=== PATIENT | male | born 1935 | race Caucasian/White ===

== ENCOUNTER 2017-12-25 10:05 | Emergency (ER) | payer OTHER ==
[~2017-12-25] VITALS: Ht 185.4 cm; Wt 97.5 kg
[~2017-12-25 10:05] MED LIST: NORCO 5-325 TA1 EACH PO; ZOCOR 10 MG TAB10 MG PO
[2017-12-25] MEDS ORDERED: NAMENDA 10 MG T10 MG PO (10:31)
[2017-12-25 11:45] VITALS: BP 157/85
== END 2017-12-25 19:03 | disposition home or self-care (01) ==
LOC: ER 10:05
DX: R51 Headache (principal); I10 Essential (primary) hypertension; E78.00 Pure hypercholesterolemia, unspecified; Z88.0 Allergy status to penicillin

== ENCOUNTER 2019-08-20 16:00 | Inpatient (IN) | payer OTHER ==
[~2019-08-20] VITALS: Ht 182.9 cm; Wt 88.5 kg
[~2019-08-20 16:00] MED LIST changes: +NAMENDA 10 MG T10 MG PO
[2019-08-20 16:03] VITALS: BP 102/51
[2019-08-20 16:52] LABS: ABSOLUTE NEUTROPHILS 5.6 thou/uL (1.4-8.2); BASOPHILS 0.7 % (0.0-2.0); EOSINOPHILS 1.8 % (0.0-3.0); HEMATOCRIT 43.7 % (42.0-52.0); HEMOGLOBIN 14.8 gm/dL (14.0-18.0); LYMPHOCYTES 16.3 % (24.0-44.0); MCH 31.3 pg (26.0-34.0); MCHC 33.9 g/dL (28.0-37.0); MCV 92.4 fL (80.0-100.0); MONOCYTES 11.6 % (1.0-8.0); PLATELET COUNT 150 thou/uL (150-400); POLYS 69.6 % (36.0-66.0); RBC 4.73 mil/uL (4.50-6.00); RDW 13.8 % (10.5-14.5); WBC 8.1 thou/uL (4.0-11.0)
[2019-08-20 17:08] LABS: CALCIUM 8.6 mg/dL (8.5-10.1); CREATININE 1.4 mg/dL (0.7-1.3); POTASSIUM 4.1 mmol/L (3.5-5.1)
[2019-08-20 17:18] LABS: ALBUMIN 3.7 g/dL (3.4-5.0); TOTAL PROTEIN 6.4 g/dL (6.4-8.2)
[2019-08-20 17:20] LABS: TROPONIN-I 11.37 ng/mL (<0.06)
[2019-08-20 17:58] LABS: PROTIME 10.7 Seconds (9.3-11.4)
[2019-08-20 18:09] LABS: URINE BILIRUBIN NEGATIVE (Negative); URINE BLOOD NEGATIVE (Negative); URINE CLARITY CLEAR; URINE COLOR YELLOW; URINE GLUCOSE-RANDOM* NEGATIVE (Negative); URINE KETONES NEGATIVE (Negative); URINE LEUKOCYTES-REFLEX NEGATIVE (Negative); URINE NITRITE-REFLEX NEGATIVE (Negative); URINE PROTEIN (DIPSTICK) NEGATIVE (Negative)
[2019-08-20 18:20] LABS: ALBUMIN 3.8 g/dL (3.4-5.0); TOTAL PROTEIN 6.4 g/dL (6.4-8.2)
[2019-08-20 18:46] LABS: TSH 3.194 uIU/mL (0.358-3.740)
[2019-08-20] MEDS ORDERED: COZAAR 25 MG TA25 M2 PO (18:51)
[2019-08-20] MEDS ORDERED: VITAMIN B-121000 MC2 SUBLING (18:52)
[2019-08-20] MEDS ORDERED: LIPITOR10 MG PO (18:52)
[2019-08-20 19:20] VITALS: BP 106/64
[2019-08-20 19:41] VITALS: BP 100/51
[2019-08-20] MEDS ORDERED: EXELON1 EACH TRANSDERM (21:35)
[2019-08-21 00:01] VITALS: BP 120/65
[2019-08-21 03:50] VITALS: BP 122/52
[2019-08-21 07:00] VITALS: BP 112/55
--- NOTE | 2019-08-21 09:54 | EKG ---
[facility] [place] [address] ELECTROCARDIOGRAM REPORT Name: RUPAL ROCHA Room #: 217-P ADM IN M.R.#: [id number] Admission: 08/20/19 Attend Phys: Lior Ambrose MD Discharge: Date of : 37 Report #: [id number] THIS REPORT FOR: cc: Henrry Pat MD, Rene P. MD Park, Jin S. MD ~ THIS REPORT FOR: //name// [facility] ED Test Date: 2019-08-20 Test Time: 16:36:31 Pat Name: RUPAL ROCHA Department: Room: [facility] Gender: M Display Screen Fabricator: JUDD : 1935 Requested By: Jacky Willams Order Number: [id number] MD: Wilian cMkeon Measurements Intervals [place] Rate: 47 P: SC: QRS: 269 QRSD: 114 T: 65 QT: 456 QTc: 404 Interpretive Statements Sinus bradycardia Left anterior fascicular block Low voltage, extremity leads Abnormal R-wave progression, late transition No previous ECG available for comparison Electronically Signed On 08-21-2019 9:53:38 CDT by Wilian Mckeon [email or web address] <ELECTRONICALLY SIGNED> By: Wilian Mckeon MD 08/21/19 0953 1636 1636 Wilian Mckeon MD /[facility]
[2019-08-21 11:30] VITALS: BP 97/71
[2019-08-21 16:30] VITALS: BP 95/49
[2019-08-21 18:07] LABS: HEMATOCRIT 41.5 % (42.0-52.0); HEMOGLOBIN 14.1 gm/dL (14.0-18.0); MCH 31.4 pg (26.0-34.0); MCHC 33.9 g/dL (28.0-37.0); MCV 92.5 fL (80.0-100.0); RBC 4.49 mil/uL (4.50-6.00); RDW 13.7 % (10.5-14.5)
[2019-08-21 18:26] LABS: CALCIUM 8.2 mg/dL (8.5-10.1); CREATININE 1.1 mg/dL (0.7-1.3); MAGNESIUM 1.9 mg/dL (1.8-2.4); POTASSIUM 3.9 mmol/L (3.5-5.1)
[2019-08-21 18:30] VITALS: BP 91/40
[2019-08-22 04:45] VITALS: BP 99/55
[2019-08-22 07:50] VITALS: BP 95/50
--- NOTE | 2019-08-22 09:02 | HC ---
[facility] [place] [address] CONSULTATION Name: RUPAL ROCHA Room #: 217-P [facility] IN .R.#: [id number] Admission: 08/20/19 Attend Phys: Lior Ambrose MD Discharge: Date of : 36 Report #: [id number] THIS REPORT FOR: cc: Henrry Pat MD, Rene P. MD Park, Jin S. MD ~ CC: Lior Pat DATE OF SERVICE: 08/21/2019 CARDIOLOGY CONSULTATION INDICATION: Troponin elevation. HISTORY OF PRESENT ILLNESS: This is an 83-year-old gentleman with a history of Alzheimer's, dementia, hypertension and hypercholesterolemia. He was brought in by his due to lethargy and weakness. The patient is unable to give any history. The reports that the patient complained of chest pain several nights ago for about an hour. Since then, he has not had any further complaints of chest pain or shortness of breath. The patient appeared to be weaker and the brought the patient to the ER for an evaluation. He was found to have a troponin elevation, but the ECG did not show any acute ST segment changes. He was also found to have a low blood pressure and bradycardia. PAST MEDICAL HISTORY: Hypertension, Alzheimer's, hypercholesterolemia. ALLERGIES: PENICILLIN. MEDICATIONS: At home include Namenda 10 mg twice a day, losartan 50 mg daily, Lipitor 10 mg daily. SOCIAL HISTORY: Negative for tobacco use, lives with his in [facility]. FAMILY HISTORY: Negative for premature CAD. REVIEW OF SYSTEMS: A full 10-point review of systems performed. Only the pertinent positives and negatives are described in the HPI. PHYSICAL EXAMINATION: VITAL SIGNS: Blood pressure is 110/50, heart rate is 54 beats per minute. GENERAL APPEARANCE: This is an elderly appearing male, in no acute distress. HEENT: Normocephalic, atraumatic. Oral mucosa moist. NECK: Supple. LUNGS: Clear to auscultation. CARDIAC: Regular rate and rhythm. S1, S2 positive. [facility] [address] [place] [address] CONSULTATION Name: AJRUPAL Suzie Room #: 217-P [facility] IN M.R.#: [id number] Admission: 08/20/19 Attend Phys: Lior Ambrose MD Discharge: Date of : 36 Report #: [id number] ABDOMEN: Soft, nontender. EXTREMITIES: No cyanosis. Trace edema. NEUROLOGIC: Lethargic, but able to answer questions. LABORATORY VALUES: Peak troponin is 11.37. White count is 8.1, hemoglobin 14.8, creatinine is 1.4. DIAGNOSTIC DATA: ECG reveals sinus bradycardia. ASSESSMENT AND PLAN: 1. Non-ST elevation myocardial infarction. By his history, it seems that the initial incident was several nights ago. He has not had any further episodes of chest pain. The initial troponin of 11 is the peak and the subsequent one is already a downward trend. I have discussed the findings and history with his . Given his age, comorbid conditions, we will pursue a strategy of conservative therapy. Continue on aspirin and statin therapy. No beta adriane in view of his bradycardia. We will obtain an echo. 2. Hypertension, low blood pressure. Hold medications and continue with hydration. 3. Hypercholesterolemia, continue with statin therapy. 4. Weakness/lethargy, rule out an infectious process. <ELECTRONICALLY SIGNED> By: Wilian Mckeon MD 08/22/19 0902 1025 1041 Wilian Mckeon MD /nt
[2019-08-22 11:45] VITALS: BP 108/72
[2019-08-22 13:36] LABS: HEMATOCRIT 40.7 % (42.0-52.0); HEMOGLOBIN 13.7 gm/dL (14.0-18.0); MCH 31.3 pg (26.0-34.0); MCHC 33.7 g/dL (28.0-37.0); MCV 92.8 fL (80.0-100.0); RBC 4.38 mil/uL (4.50-6.00); RDW 14.1 % (10.5-14.5); WBC 6.8 thou/uL (4.0-11.0)
[2019-08-22 13:54] LABS: ALBUMIN 2.8 g/dL (3.4-5.0); CALCIUM 8.1 mg/dL (8.5-10.1); MAGNESIUM 1.9 mg/dL (1.8-2.4); POTASSIUM 3.5 mmol/L (3.5-5.1); TOTAL BILIRUBIN 0.7 mg/dL (<0.1-1.0); TOTAL PROTEIN 5.8 g/dL (6.4-8.2)
[2019-08-22 16:00] VITALS: BP 97/51
[2019-08-22 20:01] VITALS: BP 120/61
[2019-08-23 05:08] LABS: CALCIUM 7.8 mg/dL (8.5-10.1); CREATININE 0.9 mg/dL (0.7-1.3); MAGNESIUM 1.7 mg/dL (1.8-2.4); POTASSIUM 3.6 mmol/L (3.5-5.1)
[2019-08-23 05:12] LABS: HEMATOCRIT 36.8 % (42.0-52.0); HEMOGLOBIN 12.5 gm/dL (14.0-18.0); MCH 31.4 pg (26.0-34.0); MCHC 33.9 g/dL (28.0-37.0); MCV 92.6 fL (80.0-100.0); RBC 3.98 mil/uL (4.50-6.00); RDW 13.4 % (10.5-14.5)
[2019-08-23 05:13] VITALS: BP 142/77
--- NOTE | 2019-08-23 09:36 | 2DMMODE ---
[facility] [place] [address] 2 D/M-MODE ECHOCARDIOGRAM Name: ROCHARUPAL Larsen Room #: 217-P ADM IN M.R.#: [id number] Admission: 08/20/19 Attend Phys: Lior Ambrose MD Discharge: Date of : 36 Report #: [id number] THIS REPORT FOR: cc: Henrry Pat MD, Rene P. MD Park, Jin S. MD ~ APPROVED REPORT Study performed: 08/21/2019 10:00:07 EXAM: Comprehensive 2D, Doppler, and color-flow Echocardiogram Patient Location: Bedside Room #: 217 Status: routine BSA: 2.34 HR: 53 bpm Other Information Study Quality: Technically Difficult Indications NSTEMI 2D Dimensions IVSd: 12.64 (7-11mm) LVOT Diam: 25.20 (18-24mm) LVDd: 46.88 mm PWd: 13.36 (7-11mm) Ascending Ao: 36.13 (22-36mm) LVDs: 22.32 (25-40mm) Left Atrium: 39.61 (27-40mm) Aortic Root: 36.11 mm Volumes Left Atrial Volume (Systole) Single Plane 4CH: 43.09 mL Single Plane 2CH: 39.14 mL LA ESV Index: 19.00 mL/m2 Aortic Valve AoV Peak Aiden.: 1.37 m/s AO Peak Gr.: 7.49 mmHg AO Mean Gr.: 3.39 mmHg AO V2 Mean: 0.84 m/s AO V2 VTI: 29.36 cm [facility] [address] [place] [address] 2 D/M-MODE ECHOCARDIOGRAM Name: RUPAL ROCHA Room #: 217-P [facility] IN .R.#: [id number] Admission: 08/20/19 Attend Phys: Lior Ambrose, Discharge: Date of : 36 Report #: [id number] Mitral Valve E/A Ratio: 1.3 MV Decel. Time: 230.96 ms MV E Max Aiden.: 0.81 m/s MV A Aiden.: 0.62 m/s MV PHT: 66.98 ms IVRT: 115.34 ms Pulmonary Vein P Vein S: 0.37 m/s P Vein A: 0.28 m/s P Vein D: 0.22 m/s P Vein A Dur.: 170.7 msec P Vein S/D Ratio: 1.68 Left Ventricle The left ventricle is normal size. Mild concentric left ventricular hypertrophy. The left ventricular systolic function is normal. The left ventricular ejection fraction is within the normal range. LVEF is 60-65%. This study is not technically sufficient to allow evaluation of the LV diastolic function. Right Ventricle Right ventricle appears grossly normal in size. Atria The left atrium size is normal. The right atrium size is normal. Aortic Valve The aortic valve is normal in structure. No aortic regurgitation is present. There is no aortic valvular stenosis. Mitral Valve Mild mitral annular calcification. Mild mitral regurgitation. No evidence of mitral valve stenosis. Tricuspid Valve The tricuspid valve is normal in structure. There is no tricuspid valve regurgitation noted. Unable to assess PA pressure. Pulmonic Valve Pulmonic valve is not visualized. Great Vessels The aortic root is normal in size. IVC is not visualized. [facility] [address] [place] [address] 2 D/M-MODE ECHOCARDIOGRAM Name: RUPAL ROCHA Room #: 217-P [facility] IN M.R.#: [id number] Admission: 08/20/19 Attend Phys: Lior Ambrose, Discharge: Date of : 36 Report #: [id number] Pericardium There is no pericardial effusion. <Conclusion> The left ventricle is normal size. Mild concentric left ventricular hypertrophy. The left ventricular systolic function is normal. Right ventricle appears grossly normal in size. The left atrium size is normal. The aortic valve is normal in structure. Mild mitral annular calcification. Mild mitral regurgitation. There is no tricuspid valve regurgitation noted. <ELECTRONICALLY SIGNED> By: Wilian Mckeon MD 08/23/19 0934 0934 0934 Wilian Mckeon MD /INF
[2019-08-23 13:14] VITALS: BP 135/72
[2019-08-23 13:53] VITALS: BP 135/72
[2019-08-23] MEDS ORDERED: LIPITOR10 MG PO (14:49)
[2019-08-23] MEDS ORDERED: TRI-BUFFERED A325 M1 PO (14:50)
[2019-08-23 15:08] VITALS: BP 135/72
[2019-08-23 15:56] VITALS: BP 135/72
[2019-08-24 09:20] LABS: CHOLESTEROL 107 mg/dL (<200); HDL CHOLESTEROL 35 mg/dL (>40); LDL CHOLESTEROL 63 mg/dL (<100); TC:HDL 3.1 Ratio (Not establshd); TRIGLYCERIDE 47 mg/dL (<150); VLDL 9 mg/dL (<40)
== END 2019-08-23 16:00 | disposition home health service (06) | DRG 281 ==
LOC: ER 16:00 → 2N 19:32
PROVIDERS: Emergency Medicine; ADMIT Internal Medicine
DX: I21.4 Non-ST elevation (NSTEMI) myocardial infarction (principal); E46 Unspecified protein-calorie malnutrition; N17.9 Acute kidney failure, unspecified; I12.9 Hypertensive chronic kidney disease with stage 1 through stage 4 chronic kidney disease, or unspecified chronic kidney disease; E78.00 Pure hypercholesterolemia, unspecified; I95.9 Hypotension, unspecified; N18.3 Chronic kidney disease, stage 3 (moderate); G30.9 Alzheimer's disease, unspecified; F02.80 Dementia in other diseases classified elsewhere, unspecified severity, without behavioral disturbance, psychotic disturbance, mood disturbance, and anxiety; Z66 Do not resuscitate; E53.8 Deficiency of other specified B group vitamins; Z88.0 Allergy status to penicillin; Z79.82 Long term (current) use of aspirin; Z79.899 Other long term (current) drug therapy; Z68.26 Body mass index [BMI] 26.0-26.9, adult
CPT/HCPCS: 10081

== ENCOUNTER 2020-02-14 07:38 | Emergency (ER) | payer OTHER ==
[~2020-02-14] VITALS: Ht 185.4 cm; Wt 102.1 kg
[~2020-02-14 07:38] MED LIST changes: +COZAAR 25 MG TA25 M2 PO; +EXELON1 EACH TRANSDERM; +LIPITOR10 MG PO; +TRI-BUFFERED A325 M1 PO; +VITAMIN B-121000 MC2 SUBLING
[2020-02-14 08:53] VITALS: BP 132/75
== END 2020-02-14 09:09 | disposition home or self-care (01) ==
LOC: EDBD 07:38 → ER 07:38
DX: R51 Headache (principal); H92.01 Otalgia, right ear; F03.90 Unspecified dementia, unspecified severity, without behavioral disturbance, psychotic disturbance, mood disturbance, and anxiety; E78.00 Pure hypercholesterolemia, unspecified; I10 Essential (primary) hypertension; Z79.899 Other long term (current) drug therapy; Z79.82 Long term (current) use of aspirin; Z88.0 Allergy status to penicillin

== ENCOUNTER 2021-03-31 10:43 | Emergency (ER) | payer OTHER ==
[~2021-03-31] VITALS: Ht 185.4 cm; Wt 99.8 kg
--- NOTE | ~2021-03-31 | EMS ---
[facility] [address] [place] [address] EMS Patient Care Report Name: RUPAL ROCHA Room #: DEP KG Stanton#: [id number] Admission: 03/31/21 Attend Phys: Discharge: 03/31/21 Date of : 36 Report #: [id number] THIS REPORT FOR: //name// Report Transmitted: 04/02/2021 14:37 EMS Care Summary [place], [place]/[facility] Incident [id number] @ 03/31/2021 10:14 Incident Location [address] Patient RUPAL ROCHA Male, 85 Years 1935 Patient Address [address] [place] [address] Patient History Dementia,Hypertension (HTN), Patient Allergies Penicillin allergy, Patient Medications Atorvastatin, Losartan, Memantine, Sertraline, Meloxicam, Chief Complaint RLQ ABD PAIN AND CONSTIPATION Disposition Transported No Lights/[place] Dispatch Reason Abdominal Pain/Problems Transported To [facility] Narrative UPON ARRIVAL WE FOUND OUR 85 YEAR OLD MALE PATIENT, WITH A HX OF DEMENTIA, LAYING IN BED IN HIS APT AT [facility] WITH HIS BY HIS SIDE COMPLAINING OF INTERMITTENT, SHARP RLQ ABD PAIN X 2 DAYS. THE PATIENT'S [facility] [address] [place] [address] EMS Patient Care Report Name: RUPAL ROCHA Room #: DEP ER Maximino#: [id number] Admission: 03/31/21 Attend Phys: Discharge: 03/31/21 Date of : 36 Report #: [id number] STATES THE PATIENT WAS COMPLAINING OF BACK PAIN YESTERDAY, SO SHE TOOK HIM TO HIS PCP AND HE WAS DIAGNOSED WITH ARTHRITIS OF THE SPINE AND GIVEN AN RX FOR MELOXICAM. TODAY, THE PAIN HAS MOVED TO HIS RLQ AND THE PATIENT'S THINKS HE MAY HAVE A KIDNEY STONE. SHE ALSO STATES HE HAS BEEN CONSTIPATED X 3 DAYS. THE PATIENT'S REQUESTS THE PATIENT BE TRANSPORTED TO [facility] FOR EVALUATION. IT SHOULD BE NOTED THAT OUR ASSESSMENT WAS SOMEWHAT LIMITED DUE TO THE PATIENT'S DEMENTIA. Initial Vitals @10:34P: 48,CO: 1,SpO2: 96, @10:39P: 56,R: 16,BP: 160/80,Pain: 4/10,GCS: 14,SpO2: 95,Revised Trauma: 12, @10:31P: 52,R: 18,BP: 166/85,Pain: 4/10,GCS: 14,SpO2: 98,Revised Trauma: 12, Assessments @10:26MENTAL:Person Oriented,Confused,SKIN:HEENT:Eyes: Right Pupil: 4-mm,Eyes: Left Pupil: 4-mm,Head/Face: No Abnormalities,Neck/Airway: No Abnormalities,LUNG SOUNDS:General: Other,Right Lower: Tenderness,ABDOMEN:General: Other,Right Lower: Tenderness,PELVIS//GI:No Abnormalities,EXTREMITIES:Left Arm: No Abnormalities,Right Arm: No Abnormalities,Left Leg: No Abnormalities,Right Leg: No Abnormalities,PULSE:Radial: 2+ Normal,NEURO:No Abnormalities, Impression Abdominal Pain Procedures @10:26 ALS Assessment Response: UnchangedSucceeded Timeline 10:11,Call Received 10:11,Dispatch Notified 10:14,Dispatched 10:14,En Route 10:22,On Scene 10:25,At Patient 10:26,ALS Assessment,Response: UnchangedSucceeded, 10:31,BP: 166/85 M,PULSE: 52,RR: 18 R,SPO2: 98 Ox,ETCO2: ,BG: ,PAIN: 4,GCS: 14, 10:34,BP: / M,PULSE: 48,RR: R,SPO2: 96 Ox,ETCO2: ,BG: ,PAIN: ,GCS: , 10:35,Depart Scene 10:39,BP: 160/80 M,PULSE: 56,RR: 16 R,SPO2: 95 Ox,ETCO2: ,BG: ,PAIN: 4,GCS: 14, 11:05,At Destination 11:06,Call Closed Disclaimer v1.1 Copyright 2020 [employer] This EMS Care Summary contains data elements from the applicable legal record [address] [address] EMS Patient Care Report Name: RUPAL ROCHA Room #: DEP KG Stanton#: [id number] Admission: 03/31/21 Attend Phys: Discharge: 03/31/21 Date of : 36 Report #: [id number] (which may be displayed differently). It is designed to provide pertinent information for the following purposes: continuity of care, clinical quality, and state data reporting. The complete legal record is available to ED staff and administrators of the receiving hospital in [facility]'s Patient Tracker. All data is provided "as is."
[2021-03-31 11:05] LABS: ABSOLUTE NEUTROPHILS 6.3 thou/uL (1.4-8.2); BASOPHILS 0.6 % (0.0-2.0); EOSINOPHILS 0.3 % (0.0-3.0); HEMATOCRIT 39.9 % (42.0-52.0); HEMOGLOBIN 13.6 gm/dL (14.0-18.0); LYMPHOCYTES 10.2 % (24.0-44.0); MCH 31.2 pg (26.0-34.0); MCHC 34.1 g/dL (28.0-37.0); MCV 91.5 fL (80.0-100.0); MONOCYTES 4.2 % (1.0-8.0); PLATELET COUNT 158 thou/uL (150-400); POLYS 84.7 % (36.0-66.0); RBC 4.36 mil/uL (4.50-6.00); RDW 13.3 % (10.5-14.5); WBC 7.4 thou/uL (4.0-11.0)
[2021-03-31] MEDS ORDERED: MELOXICAM15 MG PO (11:08)
[2021-03-31] MEDS ORDERED: ZOLOFT 50 MG TA50 MG PO (11:08)
[2021-03-31] MEDS ORDERED: LOSARTAN POTASS50 MG PO (11:09)
[2021-03-31 11:14] LABS: URINE BILIRUBIN NEGATIVE (Negative); URINE BLOOD TRACE (Negative); URINE CLARITY CLEAR; URINE COLOR YELLOW; URINE GLUCOSE-RANDOM* NEGATIVE (Negative); URINE KETONES NEGATIVE (Negative); URINE LEUKOCYTES-REFLEX NEGATIVE (Negative); URINE NITRITE-REFLEX NEGATIVE (Negative); URINE PROTEIN (DIPSTICK) NEGATIVE (Negative)
[2021-03-31 11:15] LABS: CALCIUM 8.4 mg/dL (8.5-10.1); POTASSIUM 3.8 mmol/L (3.5-5.1)
[2021-03-31 11:21] LABS: ALBUMIN 3.8 g/dL (3.4-5.0); DIRECT BILIRUBIN 0.2 mg/dL (<0.1-0.2); TOTAL BILIRUBIN 0.8 mg/dL (0.2-1.0); TOTAL PROTEIN 6.4 g/dL (6.4-8.2)
[2021-03-31 14:37] VITALS: BP 132/77
== END 2021-03-31 14:57 | disposition home or self-care (01) ==
LOC: ER 10:43
PROVIDERS: Student in an Organized Health Care Education/Training Program
DX: R10.31 Right lower quadrant pain (principal); N32.9 Bladder disorder, unspecified; E78.00 Pure hypercholesterolemia, unspecified; I10 Essential (primary) hypertension; Z79.82 Long term (current) use of aspirin; Z79.891 Long term (current) use of opiate analgesic; Z79.899 Other long term (current) drug therapy; Z88.0 Allergy status to penicillin

== ENCOUNTER 2021-04-20 15:39 | Emergency (ER) | payer OTHER ==
[~2021-04-20] VITALS: Ht 182.9 cm; Wt 79.4 kg
--- NOTE | ~2021-04-20 | EMS ---
[facility] [address] [place] [address] EMS Patient Care Report Name: RUPAL ROCHA Room #: REG KG Stanton#: [id number] Admission: 04/20/21 Attend Phys: Discharge: Date of : 36 Report #: [id number] THIS REPORT FOR: //name// Report Transmitted: 04/20/2021 20:43 EMS Care Summary [place], [place]/[facility] Incident [id number] @ 04/20/2021 14:59 Incident Location [address] Patient RUPAL ROCHA Male, 85 Years 1935 Patient Address [address] [place] [address] Patient History Dementia,Hypertension (HTN), Patient Allergies Penicillin allergy, Patient Medications Meloxicam, Sertraline, Atorvastatin, Memantine, Losartan, Chief Complaint Syncopal Episode Disposition Transported No Lights/[place] Dispatch Reason Unconscious/Fainting Transported To [facility] Narrative M537 arrived on scene to find pt, a 85yo male sitting on the toilet with his at his side. Pts states he was complaining of discomfort in his stomach earlier so she brought him to use the restroom. During use of the [facility] [address] [place] [address] EMS Patient Care Report Name: RUPAL ROCHA Room #: REG KG Stanton#: [id number] Admission: 04/20/21 Attend Phys: Discharge: Date of : 36 Report #: [id number] restroom, pts state pt went unresponsive for a few moments before regaining consciousness. Upon initial contact pt states that his stomach feels full like he is constipated. Pt was assisted off the toilet and self ambulated to EMS stretcher and secured with all straps. Pt vitals obtained on scene. Pt was loaded into ambulance via stretcher and 12 lead ECG placed on pt. Pt showed a junctional rhythm on the monitor along with hypotension. Vascular access was obtained and 0.5mg of Atropine was administered to pt. Pt A&O status remained x1 to self for the entire duration of EMS contact with a hx of dementia. Pt heart rate increased upon administration of medication. Upon arrival to ED pt was brought into ER via stretcher and transferred to hospital bed via draw sheet method. Verbal report was given to RN and pt care transferred. M537 return in service. Initial Vitals @15:23P: 46,BP: 105/61,CO: 0,SpO2: 100, @15:24P: 47, @15:21P: 35,SpO2: 94, @15:30P: 62,BP: 107/61,SpO2: 99, @15:13P: 49,BP: 102/62,CO: 2,SpO2: 94, @15:29P: 49,SpO2: 100, @15:27P: 48,SpO2: 99, @15:21P: 35, @15:08P: 51,R: 18,BP: 93/57,Pain: 2/10,GCS: 14,Glucose: 143,SpO2: 94,Revised Trauma: 12,[place] Suspected: false Assessments @15:05MENTAL:Person Oriented,SKIN:HEENT:LUNG SOUNDS:General: Other,ABDOMEN:General: Other,PELVIS//GI:No Abnormalities,EXTREMITIES:Capillary Refill: Right Upper: 4 Sec,PULSE:Radial: 1+ Thready,NEURO:No Abnormalities, Impression Syncope / Fainting Procedures @15:21 12-Lead ECG Response: UnchangedSucceeded @15:20 Oxygen FlowRate: 3 Device: Nasal Cannula (NC) Response: ImprovedSucceeded @15:10 Stretcher Response: Unchanged @15:13 3-Lead ECG Response: UnchangedSucceeded @15:05 ALS Assessment Response: UnchangedSucceeded @15:21 IV Therapy - Saline Lock 10cc (20 ga) Site: Antecubital-Left Response: UnchangedSucceeded @15:29 Atropine - 0.5 Milligrams (mg) - Intravenous (IV) Response: Improved [facility] [address] [place] [address] EMS Patient Care Report Name: AJRUPAL Room #: REG Maximino#: [id number] Admission: 04/20/21 Attend Phys: Discharge: Date of : 36 Report #: [id number] Timeline 14:55,Call Received 14:55,Dispatch Notified 14:59,Dispatched 15:00,En Route 15:01,On Scene 15:04,At Patient 15:05,ALS Assessment,Response: UnchangedSucceeded, 15:08,BP: 93/57 M,PULSE: 51,RR: 18 R,SPO2: 94 Ox,ETCO2: ,B,PAIN: 2,GCS: 14, 15:10,Stretcher,Response: Unchanged 15:13,3-Lead ECG,Response: UnchangedSucceeded, 15:13,BP: 102/62 M,PULSE: 49,RR: R,SPO2: 94 Ox,ETCO2: ,BG: ,PAIN: ,GCS: , 15:20,Depart Scene 15:20,Oxygen FlowRate: 3 Device: Nasal Cannula (NC) Response: ImprovedSucceeded, 15:21,IV Therapy - Saline Lock 10cc 20 ga Site: Antecubital-Left,Response: UnchangedSucceeded, 15:21,BP: / M,PULSE: 35,RR: R,SPO2: 94 Ox,ETCO2: ,BG: ,PAIN: ,GCS: , 15:21,12-Lead ECG,Response: UnchangedSucceeded, 15:21,BP: / M,PULSE: 35,RR: R,SPO2: Ox,ETCO2: ,BG: ,PAIN: ,GCS: , 15:23,BP: 105/61 M,PULSE: 46,RR: R,SPO2: 100 Ox,ETCO2: ,BG: ,PAIN: ,GCS: , 15:24,BP: / M,PULSE: 47,RR: R,SPO2: Ox,ETCO2: ,BG: ,PAIN: ,GCS: , 15:27,BP: / M,PULSE: 48,RR: R,SPO2: 99 Ox,ETCO2: ,BG: ,PAIN: ,GCS: , 15:29,Atropine - 0.5 Milligrams (mg) - Intravenous (IV),Response: Improved 15:29,BP: / M,PULSE: 49,RR: R,SPO2: 100 Ox,ETCO2: ,BG: ,PAIN: ,GCS: , 15:30,BP: 107/61 M,PULSE: 62,RR: R,SPO2: 99 Ox,ETCO2: ,BG: ,PAIN: ,GCS: , 15:35,At Destination 15:45,Call Closed Disclaimer v1.1 Copyright 2020 [employer] This EMS Care Summary contains data elements from the applicable legal record (which may be displayed differently). It is designed to provide pertinent information for the following purposes: continuity of care, clinical quality, and state data reporting. The complete legal record is available to ED staff and administrators of the receiving hospital in [facility]'s Patient Tracker. All data is provided "as is."
[~2021-04-20 15:39] MED LIST changes: +LOSARTAN POTASS50 MG PO; +MELOXICAM15 MG PO; +ZOLOFT 50 MG TA50 MG PO
[2021-04-20 16:02] LABS: ABSOLUTE NEUTROPHILS 2.3 thou/uL (1.4-8.2); BASOPHILS 1.3 % (0.0-2.0); HEMOGLOBIN 12.1 gm/dL (14.0-18.0); LYMPHOCYTES 23.6 % (24.0-44.0); MCH 30.7 pg (26.0-34.0); MCHC 33.5 g/dL (28.0-37.0); MCV 91.6 fL (80.0-100.0); MONOCYTES 6.7 % (1.0-8.0); PLATELET COUNT 171 thou/uL (150-400); POLYS 61.4 % (36.0-66.0); RBC 3.93 mil/uL (4.50-6.00); RDW 13.5 % (10.5-14.5); WBC 3.8 thou/uL (4.0-11.0)
[2021-04-20 16:26] LABS: CALCIUM 8.1 mg/dL (8.5-10.1); CREATININE 1.2 mg/dL (0.7-1.3); POTASSIUM 3.6 mmol/L (3.5-5.1)
[2021-04-20 16:28] LABS: APTT 23.9 Seconds (24.5-32.8); D-DIMER 1.15 ug/mLFEU (0.19-0.50); INR 1.1; PROTIME 11.9 Seconds (10.5-12.1)
[2021-04-20 16:37] LABS: ALBUMIN 3.2 g/dL (3.4-5.0); TOTAL BILIRUBIN 0.6 mg/dL (0.2-1.0); TOTAL PROTEIN 5.8 g/dL (6.4-8.2)
[2021-04-20 18:59] VITALS: BP 148/78
--- NOTE | 2021-04-23 07:32 | EKG ---
[address] [place] [address] ELECTROCARDIOGRAM REPORT Name: RUPAL ROCHA Room #: DEP KG Stanton#: [id number] Admission: 04/20/21 Attend Phys: Discharge: 04/20/21 Date of : 36 Report #: [id number] [facility] ED Test Date: 2021-04-20 Test Time: 15:41:23 Pat Name: RUPAL ROCHA Department: Room: Gender: M Director Of Group Sales: HERMAN : 1935 Requested By: Romulo Martinez Order Number: [id number] MD: Dayday Mueller Measurements Intervals [place] Rate: 49 P: MT: QRS: -74 QRSD: 113 T: 12 QT: 478 QTc: 432 Interpretive Statements SINUS BRADYCARDIA Ventricular premature complex Low voltage, extremity leads Compared to ECG 08/20/2019 16:36:31 Ventricular premature complex(es) now present Electronically Signed On 04-23-2021 7:32:13 WAREHOUSE SORTER by Dayday Mueller [email or web address] <ELECTRONICALLY SIGNED> By: Dayday Mueller MD, [facility] 04/23/21 0732 1541 1541 Dayday Mueller MD, FACC /EPI
== END 2021-04-20 19:01 | disposition home or self-care (01) ==
LOC: ER 15:39
PROVIDERS: Emergency Medicine
DX: R55 Syncope and collapse (principal); E78.00 Pure hypercholesterolemia, unspecified; I10 Essential (primary) hypertension; Z79.899 Other long term (current) drug therapy; Z88.0 Allergy status to penicillin

== ENCOUNTER 2021-05-05 11:32 | Inpatient (IN) | payer OTHER ==
[~2021-05-05] VITALS: Ht 182.9 cm; Wt 77.1 kg
--- NOTE | ~2021-05-05 | EMS ---
[facility] [address] [place] [address] EMS Patient Care Report Name: RUPAL ROCHA Room #: 439-P ADM IN M.R.#: [id number] Admission: 05/05/21 Attend Phys: Gordon Perdomo MD Discharge: Date of : 36 Report #: [id number] THIS REPORT FOR: //name// Report Transmitted: 05/06/2021 20:23 EMS Care Summary [place], [place]/[facility] Incident [id number] @ 05/05/2021 10:34 Incident Location [address] Patient RUPAL ROCHA Male, 85 Years 1935 Patient Address [address] [place] [address] Patient History Dementia,Hypertension (HTN), Patient Allergies Penicillin allergy, Patient Medications Meloxicam, Losartan, Sertraline, Memantine, Atorvastatin, Chief Complaint Altered per Disposition Transported No Lights/[place] Dispatch Reason Sick Person Transported To [facility] Narrative Called for a sick. Upon arrival, pt was lying asleep in his bed. Pt stated he hasn't been doing well for the past 2-3 days becoming more lethargic and malaise, and an overall decline over the past several months. He fell [facility] [address] [place] [address] EMS Patient Care Report Name: RUPAL ROCHA Room #: 439-P ADM IN Maximino#: [id number] Admission: 05/05/21 Attend Phys: Gordon Perdomo MD Discharge: Date of : 37 Report #: [id number] about 7 days ago, but was sent home with no injuries. They request transport to [facility] ER for further eval & tx. He was moved with the EMS cot and loaded into the ambulance w/o incident. Vitals obtained. 18g IV SL and D-stick. 4 Lead. O2 via NC. Vitals repeated. En route: no changes. RR to the ER. Arrived: pt taken to ER #10 and moved to their bed w/o incident. Pt care & report to ER staff. Initial Vitals @11:10P: 59,R: 16,BP: 137/76,Pain: 0/10,GCS: 12,CO: 0,SpO2: 94,Revised Trauma: 11, @11:09P: 59,R: 16,BP: 145/79,Pain: 0/10,GCS: 12,Glucose: 108,CO: 1,SpO2: 93,Revised Trauma: 11, @11:19P: 60,Pain: 0/10,CO: 3,SpO2: 98,ND Suspected: false Assessments @10:53MENTAL:Confused,Person Oriented,SKIN:HEENT:LUNG SOUNDS:General: Vomiting,General: Diarrhea,ABDOMEN:General: Vomiting,General: Diarrhea,PELVIS//GI:No Abnormalities,EXTREMITIES:Left Arm: No Abnormalities,Right Arm: No Abnormalities,Left Leg: No Abnormalities,Right Leg: No Abnormalities,PULSE:Radial: 2+ Normal,NEURO:No Abnormalities, Impression Altered Mental Status Procedures @11:14 IV Therapy - Saline Lock 8cc (18 ga) Site: Hand-Left Response: UnchangedSucceeded @10:53 ALS Assessment Response: UnchangedSucceeded @10:57 Stretcher Response: Unchanged @11:19 3-Lead ECG Response: UnchangedSucceeded @11:15 Oxygen FlowRate: 2 Device: Nasal Cannula (NC) Response: ImprovedSucceeded Timeline 10:32,Call Received 10:32,Dispatch Notified 10:34,Dispatched 10:35,En Route 10:49,On Scene 10:53,At Patient 10:53,ALS Assessment,Response: UnchangedSucceeded, 10:57,Stretcher,Response: Unchanged 11:09,BP: 145/79 M,PULSE: 59,RR: 16 R,SPO2: 93 Ox,ETCO2: ,B,PAIN: 0,GCS: 12, 11:10,BP: 137/76 M,PULSE: 59,RR: 16 R,SPO2: 94 Ox,ETCO2: ,BG: ,PAIN: 0,GCS: 12, [facility] [address] [address] EMS Patient Care Report Name: RUPAL ROCHA Room #: 439-P ADM IN M.R.#: [id number] Admission: 05/05/21 Attend Phys: Gordon Perdomo MD Discharge: Date of : 37 Report #: [id number] 11:14,IV Therapy - Saline Lock 8cc 18 ga Site: Hand-Left,Response: UnchangedSucceeded, 11:15,Oxygen FlowRate: 2 Device: Nasal Cannula (NC) Response: ImprovedSucceeded, 11:19,3-Lead ECG,Response: UnchangedSucceeded, 11:19,BP: / M,PULSE: 60,RR: R,SPO2: 98 Ox,ETCO2: ,BG: ,PAIN: 0,GCS: , 11:21,Depart Scene 11:27,At Destination 11:43,Call Closed Disclaimer v1.1 Copyright 2020 [employer] This EMS Care Summary contains data elements from the applicable legal record (which may be displayed differently). It is designed to provide pertinent information for the following purposes: continuity of care, clinical quality, and state data reporting. The complete legal record is available to ED staff and administrators of the receiving hospital in [employer]'s Patient Tracker. All data is provided "as is."
[2021-05-05 11:33] VITALS: BP 110/68
[2021-05-05 12:12] LABS: ABSOLUTE NEUTROPHILS 12.7 thou/uL (1.4-8.2); BASOPHILS 0.2 % (0.0-2.0); EOSINOPHILS 0.1 % (0.0-3.0); HEMATOCRIT 40.3 % (42.0-52.0); HEMOGLOBIN 13.5 gm/dL (14.0-18.0); LYMPHOCYTES 6.8 % (24.0-44.0); MCH 30.7 pg (26.0-34.0); MCHC 33.5 g/dL (28.0-37.0); MCV 91.8 fL (80.0-100.0); PLATELET COUNT 151 thou/uL (150-400); POLYS 83.9 % (36.0-66.0); RBC 4.38 mil/uL (4.50-6.00); WBC 15.2 thou/uL (4.0-11.0)
[2021-05-05 12:28] LABS: URINE BILIRUBIN NEGATIVE (Negative); URINE BLOOD 2+ (Negative); URINE CLARITY CLEAR; URINE COLOR YELLOW; URINE GLUCOSE-RANDOM* NEGATIVE (Negative); URINE KETONES NEGATIVE (Negative); URINE LEUKOCYTES-REFLEX NEGATIVE (Negative); URINE NITRITE-REFLEX NEGATIVE (Negative); URINE PROTEIN (DIPSTICK) NEGATIVE (Negative)
[2021-05-05 12:29] LABS: PROTIME 19.4 Seconds (10.5-12.1)
[2021-05-05 12:32] LABS: CALCIUM 8.3 mg/dL (8.5-10.1); CREATININE 1.1 mg/dL (0.7-1.3); POTASSIUM 3.4 mmol/L (3.5-5.1)
[2021-05-05 12:34] LABS: APTT 70.1 Seconds (24.5-32.8); INR 1.83
[2021-05-05 12:38] LABS: ALBUMIN 3.4 g/dL (3.4-5.0); TOTAL BILIRUBIN 1.6 mg/dL (0.2-1.0); TOTAL PROTEIN 6.3 g/dL (6.4-8.2)
--- NOTE | 2021-05-05 12:48 | EKG ---
[address] [address] [facility] [place] [address] ELECTROCARDIOGRAM REPORT Name: RUPAL ROCHA Room #: REG KG Stanton#: [id number] Admission: 05/05/21 Attend Phys: Discharge: Date of : 36 Report #: [id number] [facility] ED Test Date: 2021-05-05 Test Time: 11:53:40 Pat Name: RUPAL ROCHA Department: Room: Gender: M Senior Manufacturing Technician: : 1935 Requested By: Romulo Martinez Order Number: [id number] MD: Darren Robledo Measurements Intervals [place] Rate: 62 P: 29 VT: 228 QRS: 0 QRSD: 121 T: QT: 445 QTc: 452 Interpretive Statements Sinus rhythm Prolonged VT interval Nonspecific intraventricular conduction delay Compared to ECG 04/20/2021 15:41:23 First degree AV block now present Intraventricular conduction delay now present Sinus bradycardia no longer present Ventricular premature complex(es) no longer present Electronically Signed On 05-05-2021 12:47:49 RESCUE INSTRUCTOR by Darren Robledo [email or web address] <ELECTRONICALLY SIGNED> By: Darren Robledo MD 05/05/21 1247 1153 1153 Darren Robledo MD /LAMBERT
[2021-05-05 12:58] LABS: BACTERIA-REFLEX None Seen /HPF (None Seen); CASTS None Seen /LPF (None Seen); CRYSTALS None Seen /LPF (None Seen); SQUAMOUS 0-3 Few /LPF (0-3); URINE RBC 3-10 Few /HPF (NONE SEEN); URINE WBC-REFLEX 0-5 Rare /HPF (0-5)
[2021-05-05 17:20] VITALS: BP 115/55
[2021-05-05 17:34] VITALS: BP 114/71
[2021-05-05 18:25] VITALS: BP 126/73
[2021-05-05 20:54] VITALS: BP 135/60
--- NOTE | 2021-05-06 04:37 | NUR ---
PT ALERT AND ORIENTED X2, DROWSY, RAMAINS ON ROOM AIR, NPO, USES URINAL FOR ELIMINATION, IV ON THE LEFT FOREARM, COMPLIANT TO TX, NO ADVERSE REACTION NOTED, REMAINS LAYING IN BED WITH MULTIPLE ATTEMPTS TO PULL IT OFF, SECURED WELL, NO SYMPTOMS OF PAIN OR DISCOMFORT NOTED, WILL CONTIUE TO MONITOR.
[2021-05-06 05:59] LABS: HEMATOCRIT 36.2 % (42.0-52.0); HEMOGLOBIN 12.2 gm/dL (14.0-18.0); MCH 31.4 pg (26.0-34.0); MCHC 33.8 g/dL (28.0-37.0); MCV 92.8 fL (80.0-100.0); RBC 3.9 mil/uL (4.50-6.00); RDW 14.5 % (10.5-14.5); WBC 10.7 thou/uL (4.0-11.0)
[2021-05-06 06:13] LABS: POTASSIUM 3.3 mmol/L (3.5-5.1)
[2021-05-06 07:33] VITALS: BP 135/59
--- NOTE | 2021-05-06 11:39 | NUR ---
ASSUMED CARE OF PT AT 0700 THIS MORNING. PT HAS HAD ISSUES WITH N/V/D PREVIOUS FEW DAYS AND WAS ADMITTED FOR GI EVALUATION. PT HAS NO COMPLAINTS AND HAS ONE FAMILY MEMBER IN ROOM MOST OF THE MORNING. ASSESSMENTS ARE CHARTED AND OTHERWISE UNREMARKABLE. PT IS TO BE BEDREST AND FALL PRECAUTIONS ARE IN PLACE DUE TO WEAKNESS. CALL LIGHT AND OTHER NEEDS ARE IN PLACE. MEDS AND TX GIVEN NEEDED AND SCHEDULED. PER DR. SHEN, PT CAN RETURN TO CLEAR LIQUIDS FOR MEALS SINCE NO ISSUES WITH N/V. WILL MONITOR AND NOTE ANY CHANGES.
[2021-05-06 12:52] VITALS: BP 135/59
[2021-05-06 15:46] VITALS: BP 126/60
[2021-05-06 20:52] VITALS: BP 129/65
--- NOTE | 2021-05-07 03:22 | NUR ---
UPON SHIFT REPORT, PT FOUND IN BATHROOM AMBULATING WITHOUT ASSIST, NOTABLY CONFUSED WITH UNSTEADY GAIT. ASSISTED PT BACK TO BED WITH X1 ASSIST, GAIT BELT, AND WALKER. UPON SHIFT ASSESSMENT, PT SLEEP INTERRUPTED, AWAKENING CONFUSED AND LETHARGIC, OTHERWISE CALM AND COOPERATIVE. PT DENIES PAIN AND SOB WHILE ON ROOM AIR. PT HAS PRN IV MORPHINE Q4HR AND PRN PO APAP Q4HR AVAILABLE. PT TOLERATING PO INTAKE OF FLUIDS AND CLEAR LIQUID DIET WITHOUT ISSUE. PT WITHOUT NAUSEA OR EMESIS. PT INTERMITTENTLY INCONTINENT OF URINE, OTHERWISE AMBULATING WITH X1 ASSIST TO BATHROOM OR VOIDING PER URINAL. PT RESTING IN BED THROUGHOUT SHIFT, FREQUENT REPOSITIONING ENCOURAGED, PT NOTED TO SHIFT SLIGHTLY ON HIS OWN, REFUSING REPOSITIONING ASSISTANCE. PITTING +1 EDEMA NOTED TO BLE. SENSATION INTACT, CAPILLARY REFILL LESS THAN 3SEC, PERIPHERAL PULSES PALPABLE IN ALL EXTREMITIES. PT ENCOURAGED TO NOTIFY STAFF FOR ALL NEEDS, CALL LIGHT WITHIN REACH, BED ALARM ON, BED LOCKED IN LOWEST POSITION, FREQUENT MONITORING WILL CONTINUE.
[2021-05-07 05:17] LABS: HEMATOCRIT 36.1 % (42.0-52.0); HEMOGLOBIN 12.3 gm/dL (14.0-18.0); MCH 31.6 pg (26.0-34.0); MCHC 34.1 g/dL (28.0-37.0); MCV 92.8 fL (80.0-100.0); RBC 3.89 mil/uL (4.50-6.00); RDW 14.6 % (10.5-14.5); WBC 8.6 thou/uL (4.0-11.0)
[2021-05-07 05:26] LABS: POTASSIUM 3.4 mmol/L (3.5-5.1)
[2021-05-07 08:55] VITALS: BP 129/68
--- NOTE | 2021-05-07 09:41 | NUR ---
Assess due to high nutrition screen risk identification. Chart reviewed, and pt likely pending dc soon with hospice. Clear liquid diet at this time and on IVF. Defer further followup unless consulted
--- NOTE | 2021-05-07 11:28 | NUR ---
RE-ASSUMED CARE OF PT AT 0700 THIS MORNING. PT WAS SLEEPING DURING REPORT. PT PULLED OUT IV EARLY THIS MORNING. NEW IV IN RT AC. ASSESSMENTS NOTED IN CHART AND OTHERWISE UNREMARKABLE. FALL PRECAUTIONS ARE IN PLACE. CALL LIGHT AND OTHER NEEDS ARE IN REACH. MEDS AND TX GIVEN NEEDED AND SCHEDULED. WILL MONITOR AND NOTE ANY CHANGES. PT PULLED HIS IV OUT AGAIN THIS MORNING ABOUT 0735. PT WAS CONFUSED AND DIDN'T UNDERSTAND WHERE HE IS AT OR WHY. PAGING DR. SHEN TO SEE IF HE WOULD LIKE A NEW IV STARTED OR HOLD SINCE PT MAY BE DISCHARGED LATER TODAY.
--- NOTE | 2021-05-07 11:30 | NUR ---
85-year-old man with a history of dementia, CKD, CAD and known gallbladder mass who presented to the ED with complains of nausea, vomiting, abdominal pain and worsening confusion. started around 2 - 3 days ago and has been getting worse. He has a knows gallbladder mass and family elected to not have surgery (he was referred to [facility] if he wanted to have surgery). Workup in the ER showed a WBC count of 15.[address] scan again shows gallbladder mass. The family would like a trial of antibiotics, but they do not want to be aggressive and decline surgery or other heroic measures. Chart review. visited with Daily his and son Paul at bedside. Kulwant resting in bed with eyes closed. Live at [facility], 2 weeks ago he was still able to follow commands, did need assist with medication, finances, and showering. He was also able to walk with a walker and has declined over last few weeks. Family request to dc back to [facility] but not to his apartment, he will need to be on the care side, his not going to be able to provide all his assist he is requiring at this time and then add in hospice for comfort as well. Referral faxed to [facility]. Discussed during los, possible ready for dc tomorrow.
[2021-05-07 19:42] VITALS: BP 129/68
[2021-05-07 20:10] VITALS: BP 105/51
--- NOTE | 2021-05-08 02:49 | NUR ---
ASSUMED PT CARE AT AROUND 1915 HRS. PT IS ALERT TO SELF,CONFUSED AND FORGETFUL. PT GOT INCREASINGLY RESTLESS AND IMPULSIVE THE SHIFT PROGRESSED, SCHEDULED NAMENDA AND ZOLOFT RESTARTED.ONE TIME PO HADOL GIVEN. PT PULLED IV THAT WAS ORIGINALLY TO RFA, ANOTHER WAS PLACED IN LFA-ALL IV ABTS WERE INFUSED AND THEREAFTER PT PULLED THE LFA IV.RIGHT NOW, HE DOES NOT HAVE AN IV. HE STILL KEPPS JUMPING OUT OF BED. THERE IS NO ROOM NEAR THE NURSING STN AT THIS TIME.WILL CONTINUE TO MONITOR.
[2021-05-08 05:52] LABS: HEMOGLOBIN 11.9 gm/dL (14.0-18.0); MCH 31.3 pg (26.0-34.0); MCHC 33.8 g/dL (28.0-37.0); MCV 92.4 fL (80.0-100.0); RBC 3.79 mil/uL (4.50-6.00); RDW 13.9 % (10.5-14.5); WBC 5.3 thou/uL (4.0-11.0)
[2021-05-08 06:41] LABS: CALCIUM 7.9 mg/dL (8.5-10.1); CREATININE 1.1 mg/dL (0.7-1.3); POTASSIUM 3.2 mmol/L (3.5-5.1)
[2021-05-08 07:45] VITALS: BP 150/80
--- NOTE | 2021-05-08 11:11 | NUR ---
Discussed during los with the attending physician, anticipated dc to [facility] or [facility] memory care. Spoke with his annabella, agrees with dcp. Cm spoke with Deedee at [facility], they are ready and he will be going to [facility] memory care. CC requsted. Bedside nurse to call report to [phone]. Fax dc orders to [phone].
--- NOTE | 2021-05-08 11:38 | NUR ---
RE-ASSUMED CARE OF PT AT 0700 THIS MORNING. PT WAS UP PART OF THE NIGHT AND PULLED OUT IV X2. NEW IV IN LT FA IS STILL IN PLACE. PT HAD SEVERAL EPISODES OF DIARHEA BM THIS MORNING. PT WAS AWAKE AND CONFUSED TO SITUATION AND LOCATION. ASSESSMENTS ARE NOTED IN CHART AND OTHERWISE UNREMARKABLE. PT WILL BE DICHARGED TODAY AND RETURN TO [facility]. FALL PRECAUTIONS ARE IN PLACE. CALL LIGHT AND OTHER NEEDS ARE IN REACH. MEDS AND TX GIVEN NEEDED AND SCHEDULED. WILL MONITOR AND NOTE ANY CHANGES.
[2021-05-08] MEDS ORDERED: CLINDAMYCIN HC300 MG PO (13:30)
== END 2021-05-08 15:57 | DRG 871 ==
LOC: ER 11:32 → EROBS 16:45 → 4S 16:45
PROVIDERS: Emergency Medicine; ADMIT Hospitalist; ATTEND Hospitalist
DX: A41.9 Sepsis, unspecified organism (principal); J18.9 Pneumonia, unspecified organism; G93.41 Metabolic encephalopathy; C22.1 Intrahepatic bile duct carcinoma; K81.0 Acute cholecystitis; F03.90 Unspecified dementia, unspecified severity, without behavioral disturbance, psychotic disturbance, mood disturbance, and anxiety; E78.00 Pure hypercholesterolemia, unspecified; K59.00 Constipation, unspecified; N18.9 Chronic kidney disease, unspecified; I25.10 Atherosclerotic heart disease of native coronary artery without angina pectoris; K82.9 Disease of gallbladder, unspecified; Z20.822 Contact with and (suspected) exposure to COVID-19; I12.9 Hypertensive chronic kidney disease with stage 1 through stage 4 chronic kidney disease, or unspecified chronic kidney disease; Z79.899 Other long term (current) drug therapy; Z88.0 Allergy status to penicillin
CPT/HCPCS: 10195

== ENCOUNTER 2021-05-27 12:27 | Inpatient (IN) | payer OTHER ==
[~2021-05-27] VITALS: Ht 182.9 cm; Wt 77.1 kg
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
[~2021-05-27 12:27] MED LIST changes: +CLINDAMYCIN HC300 MG PO
[2021-05-27 12:28] VITALS: BP 162/83
[2021-05-27 13:51] LABS: ABSOLUTE NEUTROPHILS 2.7 thou/uL (1.4-8.2); BASOPHILS 1.2 % (0.0-2.0); EOSINOPHILS 7.1 % (0.0-3.0); HEMATOCRIT 39.1 % (42.0-52.0); LYMPHOCYTES 16.5 % (24.0-44.0); MCH 30.5 pg (26.0-34.0); MCHC 33.2 g/dL (28.0-37.0); MCV 91.8 fL (80.0-100.0); MONOCYTES 9.5 % (1.0-8.0); PLATELET COUNT 169 thou/uL (150-400); POLYS 65.7 % (36.0-66.0); RBC 4.26 mil/uL (4.50-6.00); RDW 14.2 % (10.5-14.5); WBC 4.1 thou/uL (4.0-11.0)
[2021-05-27 14:01] LABS: CALCIUM 8.6 mg/dL (8.5-10.1); CREATININE 0.9 mg/dL (0.7-1.3); POTASSIUM 4.3 mmol/L (3.5-5.1)
[2021-05-27 14:07] LABS: ALBUMIN 3.6 g/dL (3.4-5.0); TOTAL PROTEIN 6.4 g/dL (6.4-8.2)
[2021-05-27] MEDS ORDERED: MELATONIN3 M1 PO (16:41)
--- NOTE | 2021-05-27 17:42 | NUR ---
UPDATED DR ESTRELLA AND HE STATES HE SPOKE TO THE DAUGHTER (DPOA) WHO IS AGREEABLE TO SURGERY TOMORROW.
[2021-05-27 22:19] LABS: URINE BILIRUBIN NEGATIVE (Negative); URINE BLOOD NEGATIVE (Negative); URINE CLARITY CLEAR; URINE COLOR YELLOW; URINE GLUCOSE-RANDOM* NEGATIVE (Negative); URINE KETONES TRACE (Negative); URINE LEUKOCYTES-REFLEX NEGATIVE (Negative); URINE NITRITE-REFLEX NEGATIVE (Negative); URINE PROTEIN (DIPSTICK) NEGATIVE (Negative)
[2021-05-28 06:10] LABS: ABSOLUTE NEUTROPHILS 6.9 thou/uL (1.4-8.2); BASOPHILS 0.3 % (0.0-2.0); EOSINOPHILS 0.2 % (0.0-3.0); HEMATOCRIT 34.6 % (42.0-52.0); HEMOGLOBIN 11.5 gm/dL (14.0-18.0); LYMPHOCYTES 7.9 % (24.0-44.0); MCH 30.6 pg (26.0-34.0); MCHC 33.4 g/dL (28.0-37.0); MCV 91.6 fL (80.0-100.0); PLATELET COUNT 162 thou/uL (150-400); POLYS 82.6 % (36.0-66.0); RBC 3.77 mil/uL (4.50-6.00); RDW 14.1 % (10.5-14.5); WBC 8.3 thou/uL (4.0-11.0)
[2021-05-28 06:16] LABS: CALCIUM 8.2 mg/dL (8.5-10.1); CREATININE 0.9 mg/dL (0.7-1.3); MAGNESIUM 1.7 mg/dL (1.8-2.4); POTASSIUM 3.9 mmol/L (3.5-5.1)
[2021-05-28 11:50] VITALS: BP 129/63
--- NOTE | 2021-05-28 16:26 | NUR ---
Case opened to follow for dc planning. Pt readmitted from [facility] due to fall/hip fx. He has surgery today and will be WBAT. Cm spoke with his Daily [phone] regarding his dc needs. She indicates that prior to pt's admission early in May, he had been living with her in their indep apt at [facility]. He used a rwalker and was functional with reminders. After his admission 05/05 to 05/08 he was dc'd to the SNF/memory care at [facility] for SNF stay. She notes some care concerns and a pending change in their insurance to [employer] medicare advantage P[employer] on 06-02-2021 (id#[id number]), therefore she would like to consider another snf option that could take both ins plans and continue his rehab. Her goal is for him to be able to return to their apt with hh/ and private duty once he is walking better. 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 He has had both covid vaccines and a booster. SNF options close to [facility] discussed. [facility] is oon with their bc plan. [facility], [facility], [facility] and [facility] discussed. Referrals will be faxed to all four to see who could accept with the ins changing as well as who has a bed. Therapy evals pending in the am. Shadia liason to call spouse to offer a tour. Will follow.
--- NOTE | 2021-05-28 18:25 | NUR ---
RN RECEIVED REPORT FROM TUTU IN THE PACU. PT CAME TO THE UNIT AT 1730. PT WAS SITUATED AND COMPLANIS OF NO PAIN. RN CALLED PT CARLOS ALBERTO AND ASKED QUESTIONS ABOUT PT FOR ADMISSION HISTORY AND ASSESSMENT. PT IS DROWSY BUT EASILY AROUSABLE. RN WILL PASS ON TO [facility] ATTENDANT AND FOLLOW PLAN OF CARE.
[2021-05-28 19:45] VITALS: BP 117/65
--- NOTE | 2021-05-29 06:10 | NUR ---
Pt. rested quietly during the night when checked on during frequent rounds. He did have one loud outburst and was cursing at the staff. Pt. upset with wrist restraints and was explained why they were needed, but he is confused and did not understand. Bed alarm is on.
[2021-05-29 06:23] LABS: HEMATOCRIT 30.2 % (42.0-52.0); HEMOGLOBIN 10.3 gm/dL (14.0-18.0); MCH 31.3 pg (26.0-34.0); MCHC 34.1 g/dL (28.0-37.0); MCV 91.8 fL (80.0-100.0); RBC 3.28 mil/uL (4.50-6.00); RDW 14.1 % (10.5-14.5); WBC 8.3 thou/uL (4.0-11.0)
[2021-05-29 06:29] LABS: CALCIUM 7.9 mg/dL (8.5-10.1); POTASSIUM 4.1 mmol/L (3.5-5.1)
[2021-05-29 07:32] VITALS: BP 108/58
[2021-05-29 12:30] VITALS: BP 80/65
[2021-05-29 12:45] VITALS: BP 92/60
--- NOTE | 2021-05-29 14:34 | NUR ---
PATIENT IS ALERT AND ORIENT TO SELF, PATIENT IS OUT OF RESTRAIN AT 1000, INTERACT WITH FAMILY, PHYSICAL THERAPY WORK WITH PATIENT, PATIENT SAT UP IN THE CHAIR FOR 3 HOURS EATING BREAKFAST AND LUNCH. NOW IS BACK TO BED RESTING COMFORTABLY. CALL LIGHT WITHIN REACH, WILL CONTINOUS MONITORING.
[2021-05-29 15:15] VITALS: BP 97/48
[2021-05-29 20:59] VITALS: BP 100/46
--- NOTE | 2021-05-30 00:29 | NUR ---
Assessment completed. Pt is alert to self. Confused and disoriented. Pulled the RFA PIV. PT also taking off tele susana as well as the arm bands. Drsg to left hip c/d/i. SCDS in place.Some home meds resumed and pt given a dose of PO haldol. Meds taken well crushed in pudding. Took patient about 2 hours to finally relax and sleep. He was pulling on lock catheter and had to be re-directed. Right now, he appears calm and resting. He is drinking well when offered.Will let him rest more before IV insertion can be attempted.Fall prec in place.
[2021-05-30 04:06] VITALS: BP 100/57
[2021-05-30 08:15] VITALS: BP 95/59
[2021-05-30 10:30] LABS: HEMATOCRIT 29.3 % (42.0-52.0); HEMOGLOBIN 9.9 gm/dL (14.0-18.0); MCH 31.2 pg (26.0-34.0); MCHC 33.9 g/dL (28.0-37.0); MCV 92.2 fL (80.0-100.0); RBC 3.18 mil/uL (4.50-6.00); RDW 14.5 % (10.5-14.5); WBC 7.1 thou/uL (4.0-11.0)
[2021-05-30 10:50] LABS: ALBUMIN 2.8 g/dL (3.4-5.0); CREATININE 1.4 mg/dL (0.7-1.3); PHOSPHORUS 3.4 mg/dL (2.6-4.7); POTASSIUM 3.7 mmol/L (3.5-5.1)
[2021-05-30 13:44] VITALS: BP 101/54
--- NOTE | 2021-05-30 17:13 | NUR ---
Spoke with Daily via phone and dtr Korin at bedside. Both indicate they have decided to return to SNF at [facility] vs going to [facility] or another snf. They have talked with the staff at [facility] and pt's would be able to visit daily without going out in the cold weather to another place. PT eval/notes faxed to [facility] and they can accept the pt tomorrow. They have started auth and are working on a 1230to 1pm [employer]. Pt's dtr brought in clothing for dc tomorrow. OT eval ordered and will need to be faxed in the am. [facility] is able to accept both pt's [employer] plan and the new medicare plan on 06-02-21. All questions answered. Pt sitting up in bed eating lunch today. Will need pt/ot/st at dc to snf tomorrow. Chart copy requested.
[2021-05-30 18:20] VITALS: BP 102/56
--- NOTE | 2021-05-30 18:30 | NUR ---
PT ASSESSED AT START OF SHIFT. PLEASANTLY CONFUSED. COOPERATIVE W/ CARE. ASSISTED TO EAT AND ABLE TO FEED SELF SOME. NO IV ACCESS. KAMINSKI DC'D AT 1700 W/ 500MLS CLEAR, YELLOW URINE. UP TO CHAIR W/ THERAPY FOR COUPLE OF HOURS. DR. SHEN IN AND TALKED W/ PT RE PLAN OF CARE AND DISCHARGE TOMORROW.
[2021-05-30 19:39] VITALS: BP 105/68
[2021-05-31 04:38] VITALS: BP 119/70
[2021-05-31 06:34] LABS: HEMATOCRIT 29.6 % (42.0-52.0); HEMOGLOBIN 10.2 gm/dL (14.0-18.0); MCH 31.8 pg (26.0-34.0); MCHC 34.4 g/dL (28.0-37.0); MCV 92.5 fL (80.0-100.0); RBC 3.2 mil/uL (4.50-6.00); RDW 14.5 % (10.5-14.5); WBC 5.5 thou/uL (4.0-11.0)
[2021-05-31 07:02] LABS: CALCIUM 8.4 mg/dL (8.5-10.1); POTASSIUM 4.2 mmol/L (3.5-5.1)
[2021-05-31 07:13] VITALS: BP 153/72
--- NOTE | 2021-05-31 07:15 | NUR ---
patient aox1 confused and forgetful.patient has marilee on left hip c/d/i. fall precaution in place. patient in bed asleep at this time breathing regular and unlaboured.
[2021-05-31] MEDS ORDERED: HYDROCODON-ACE1 EAC7 PO (08:59)
--- NOTE | 2021-05-31 11:05 | NUR ---
faxed dc orders to [facility]. bedside nurse to call report to [phone]. stretcher van set up for 1300 by clint. cm notified daughter at bedside of dc today and anticipated transportation time.
--- NOTE | 2021-05-31 13:51 | NUR ---
PT ALERT SITTING UP TO EAT, MEPILEX DRESSING APPLIED TO AMIE X3 SITES, PT HAS BEEN INCONTINENT THIS SHIFT X2, ON RA, FALL PRECAUSIONS IN PLACE, CALL LIGHT WITHIN REACH, REPORT CALLED TO [facility], TRANSPORT HERE TO GET PT AT 1315.
--- NOTE | 2021-06-06 15:56 | O ---
[facility] [place] [address] OPERATIVE REPORT Name: RUPAL ROCHA Room #: 445-P [facility] IN M.R.#: [id number] Admission: 05/27/21 Attend Phys: Raudel Katz, Discharge: 05/31/21 Date of : 36 Report #: [id number] THIS REPORT FOR: cc: Fredis Winston MD, Ammar MD Abraham,Romulo Gaines MD ~ DATE OF SERVICE: 05/27/2021 PREOPERATIVE DIAGNOSIS: Left 2-part intertrochanteric hip fracture. POSTOPERATIVE DIAGNOSIS: Left 2-part intertrochanteric hip fracture. PROCEDURE: Treatment of left intertrochanteric hip fracture with IM nail. SURGEON: Romulo Mitchell MD DYER ASSISTANT: Carole Buckner PA-C. ANESTHESIA: General. IMPLANTS: A [employer] size 11.5 short InterTAN nail with a #100 lag screw, size 95 compression screw, size 37.5 distal locking screws. ESTIMATED BLOOD LOSS: 50 mL. COMPLICATIONS: None. SPECIMENS: None. CONDITION UPON LEAVING THE OR: Stable. INDICATIONS FOR PROCEDURE: The patient is an 85-year-old gentleman who fell and sustained a left 2-part intertrochanteric hip fracture. After discussion with his daughter and , they elected for treatment with an IM nail. DESCRIPTION OF PROCEDURE: Risks, benefits, alternatives, complications were discussed in detail with the patient and the patient's family including but not limited to risk of anesthesia, risk of damage to nerves, arteries, blood vessels, risk for infection, bleeding, risk for continued hip pain, malunion, nonunion and need for reoperation. Informed consent was obtained from the patient. Left hip was appropriately marked in the preoperative holding area. IV clindamycin was given for preoperative antibiotics. He was brought to the operating room and placed in the supine position on the operating room table. General anesthesia was induced without complication. He was transferred to the [place] table. Left lower extremity was placed in traction. Right lower extremity was scissored. Fluoroscopic imaging was brought in to verify adequate fracture [address] [address] OPERATIVE REPORT Name: RUPAL ROCHA Room #: 445-P [facility] IN M.R.#: [id number] Admission: 05/27/21 Attend Phys: Raudel Katz, Discharge: 05/31/21 Date of : 36 Report #: [id number] reduction as well as the ability to obtain adequate intraoperative images as was the case. Left hip and leg were then prepped and draped in normal sterile fashion. Timeout was performed properly identifying the patient and procedure as well as the instrumentation and implants. All in the operating room were in agreement. A 2-inch incision proximal to the greater trochanter was made in line with the femur through the skin and fascia with a 10 blade. Threaded tip guidewire was taken and was placed on the tip of the greater trochanter and taken down to the level of the lesser trochanter. Fluoroscopic imaging was used to verify adequate entry portal position. The entry portal ____ was then reamed with the entry portal reamer and an 11.5 short InterTAN nail was placed down across the fracture site. This was seated to the appropriate level. The lag screw and compression screw guide was then placed. Incision was made through the skin and fascia for the guide, this was placed down to the bone. A threaded tip guidewire was then taken up into the femoral head and verified to be in good center-center position, this is measured and found to be a size 100. The path for the compression screw was then drilled and the derotation device was placed. The path for the lag screw was drilled and a 100 mm lag screw was placed up into the femoral head. A 95 mm compression screw was placed and found to get about 5 mm of compression across the fracture site. One distal locking screw was then placed in the dynamic slot. This was 37.5 mm in length. The outrigger was removed. Final fluoroscopic images were taken to verify adequate placement of hardware and fracture reduction. All wounds were thoroughly irrigated with normal saline and closed with 2-0 Vicryl, skin staple and soft dressing was applied. The patient tolerated this procedure well and went to recovery room under care of Anesthesia postoperatively. <ELECTRONICALLY SIGNED> By: Romulo Mitchell MD 06/06/21 1556 [id number] Romulo Mitchell MD /nt
== END 2021-05-31 13:20 | DRG 481 ==
LOC: ER 12:27 → 4S 15:32 → EROBS 15:32 → TBA 05-28 06:35 → 4S 05-28 16:53
PROVIDERS: Emergency Medicine; Hospitalist; Nurse Practitioner; Surgery; ADMIT Surgery; ATTEND Surgery
PROC: 0QS704Z Reposition Left Upper Femur with Internal Fixation Device, Open Approach (ICD-10-PCS; principal; 2021-05-27)
DX: S72.142A Displaced intertrochanteric fracture of left femur, initial encounter for closed fracture (principal); S22.31XA Fracture of one rib, right side, initial encounter for closed fracture; D62 Acute posthemorrhagic anemia; E78.00 Pure hypercholesterolemia, unspecified; I10 Essential (primary) hypertension; K59.00 Constipation, unspecified; F03.90 Unspecified dementia, unspecified severity, without behavioral disturbance, psychotic disturbance, mood disturbance, and anxiety; I25.10 Atherosclerotic heart disease of native coronary artery without angina pectoris; Z20.822 Contact with and (suspected) exposure to COVID-19; K82.9 Disease of gallbladder, unspecified; Z66 Do not resuscitate; Z88.0 Allergy status to penicillin; Z79.82 Long term (current) use of aspirin; Z79.899 Other long term (current) drug therapy; W18.39XA Other fall on same level, initial encounter; Y93.89 Activity, other specified; Y92.89 Other specified places as the place of occurrence of the external cause; Y99.8 Other external cause status
CPT/HCPCS: 10100; 50010; 50101; 50386; 51412; 51538; 52304; 56524; 57092; 57499; 57507; 57980; 58320; 62110; 62900; 70005